=== PATIENT | female | born 1985 | race Caucasian/White ===

== ENCOUNTER 2023-05-06 14:55 | Inpatient (IN) | payer BC, SELFPAY ==
[2023-05-06] VITALS (10 sets, daily range): BP systolic 101–125; BP diastolic 64–90; BMI 30.7; BMI 30.5
--- NOTE | 2023-05-06 08:37 | ED.GENMED ---
History of Present Illness
General
Chief Complaint: Back Pain
Source: patient
Exam Limitations: none
Time Seen by Provider: 05/06/23 08:28
Travel History
Have you had any contact with someone who has COVID-19?: No
Do you have any symptoms of coronavirus? Fever > 100 degrees, chills, cough, shortness of breath, sore throat, loss of taste or smell, muscle aches, or headache?: No
History of Present Illness
History of Present Illness:
37-year-old female presents complaining of right flank pain with associated nausea but no vomiting. This has been intermittent or ongoing for several days but this was preceded by urinary symptoms including dysuria darker colored urine and
increased frequency over the past week or so. She is healthy otherwise. No surgical history other than x 3. No fever. No radiation of pain down the leg. Pain is not worse with eating. Pain is not pleuritic. No other that this time
Phy Exam
Physical Exam
Physical Exam:
General: Uncomfortable appearing female no acute respiratory distress
HEENT: Normocephalic atraumatic
Heart: Regular rate and rhythm no murmurs
Lungs: Clear to auscultation bilaterally no wheezing
Abdomen: Mild right-sided costovertebral angle tenderness not tender over the right lower quadrant negative Suggs sign
Skin is warm no rashes
Course
Orders/Labs/Results
Orders:
Orders
05/06/23 08:36
0.9% Sodium Chloride 1000 ml [Nss] 1,000 ml IV BOLUS
Ketorolac [Toradol] 15 mg IV NOW STA
05/06/23 08:37
CT Abd/pel Without Iv Or Oral Urgent
Comment:
Reason For Exam: right flank pain
05/06/23 08:39
Test Result ONCE
05/06/23 09:13
Complete Blood Count/With Diff Urgent
Comprehensive Metabolic Panel Urgent
HCG, Serum Qualitative Screen Urgent
05/06/23 12:10
Urinalysis Reflex To Culture Urgent
Date Specimen was Collected: 05/06/23
Time Specimen was Collected: 12:07
Urine Microscopic Reflex Cult Urgent
Urine Culture Urgent
NATTY Source: U
Specimen Description:
Date Specimen was Collected: 05/06/23
Time Specimen was Collected: 12:07
Abnormal Lab Results
05/06/23 05/06/23
09:13 12:10
MCV 80.8 L fL
(81.0-99.0)
MCH 26.7 L pg
(27.0-31.0)
Chloride 109 H mmol/L
(98-107)
Glucose 112 H mg/dl
(70-99)
Ur Occult Blood Reflex 4+ A
(Negative)
Urine Nitrite (Reflex) Positive A
(Negative)
Leukocyte Esterase Rfl 1+ A
(Negative)
Urine RBC 7-10 A /HPF
(0-2)
Urine Bacteria (Reflex) Many A
(Negative)
05/06/23 09:13
05/06/23 09:13
Vital Signs
Initial and Last Documented VS:
Initial Vital Signs
Pulse Resp BP Pulse Ox
71 16 122/80 98
05/06/23 08:23 05/06/23 08:23 05/06/23 08:23 05/06/23 08:23
Last Documented Vital Signs
Temp Pulse Resp BP Pulse Ox
98.6 F 71 16 116/80 99
05/06/23 12:24 05/06/23 08:23 05/06/23 08:23 05/06/23 11:00 05/06/23 13:00
MDM/Problems Addressed
Differential Diagnosis Includes:
Right flank pain with urinary symptoms. Consider UTI versus pyelonephritis versus kidney stone
Check labs. Urinalysis pending. Treat with Toradol CT pending
*Critical Care Note
Total Time (30-74mins, 75-104mins- exclusive of procedures): Not Applicable
Update Note
Update Note:
Patient has 6.5 mm stone in the proximal right ureter that is obstructive and causing hydronephrosis. Urine is nitrite positive with many bacteria but 3-5 white blood cells per high-powered field. Discussed findings with urology. Patient was
given option to go home with trial of passage and pain relief however patient uncomfortable thought of going home. Will keep in hospital pain control and potential intervention
ED Attending Note
-
Portions of this chart may have been created with voice recognition software.� Occasional wrong word or��sound alike� substitutions may have occurred due to the inherent limitations of voice recognition software.
Discharge Plan
Departure
Patient Disposition: Admit
Date of Disposition: 05/06/23
Time of Disposition: 13:48
Admit to: Med/Surg
Presentation/result/management discussed w/ accepting MD/DO: Hospitalist
Discharge Problem:
Calculus, ureteral
Prescriptions:
No Action
ljonxnoj-sed-Ck-FA 1 mg Tablet
1 tab PO DAILY
acetaminophen 325 mg Tablet
650 mg PO Q4HPRN PRN (Reason: mild pain) Qty: 0 0RF
ibuprofen 600 mg Tablet
600 mg PO Q6HPRN PRN (Reason: cramps) Qty: 0 0RF
Referrals:
Belén Bull DO [Family Provider] -
Interventions
Interventions:
*Risk Screen - Suicide Last Done: 05/06/23 09:01
*General Assessment Last Done: 05/06/23 09:01
*Neglect/Abuse Screening Last Done: 05/06/23 09:01
ED- Fall Risk Assessment Last Done: 05/06/23 09:01
*ED COVID-19 Vaccine History Last Done: 05/06/23 08:23
ED-Musculoskeletal Assessment Last Done: 05/06/23 09:01
[2023-05-06] MEDS: NSS 1000 IV ×2 (09:13→14:54)
[2023-05-06] MEDS: TORADOL 15 MG IV (09:13)
[2023-05-06 09:24] LABS: % Basophils 0.4 % (0-2); % Eosinophils 2.2 % (0-6); % Immature Granulocytes 0.2 % (0-0.5); % Lymphocytes 30.7 % (20.5-51.1); % Monocytes 6.2 % (1.7-9.3); % Neutrophils 60.3 % (42.2-75.2); Absolute Eosinophils 0.2 10^3/uL (0-0.7); Absolute Lymphocytes 2.5 10^3/uL (1.2-3.4); Absolute Monocytes 0.5 10^3/uL (0.1-0.6); Hematocrit 39.1 % (37.0-47.0); Hemoglobin 12.9 g/dL (12.0-16.0); Mean Corpuscular Hgb 26.7 pg (27.0-31.0); Mean Corpuscular Volume 80.8 fL (81.0-99.0); Mean Platelet Volume 9.8 fL (7.4-10.4); Nucleated Red Blood Cells % 0 %; Platelet Count 281 10^3/uL (130-400); Red Blood Cell Count 4.84 10^6/uL (4.20-5.40); Red Cell Dist. Width 13.6 % (11.5-14.5); White Blood Cell Count 8.3 10^3/uL (4.8-10.8)
[2023-05-06 09:38] LABS: HCG, Serum Qualitative Screen Negative
[2023-05-06 09:41] LABS: ALT (SGPT) 24 U/L (0-35); AST (SGOT) 21 U/L (14-36); Albumin 4.4 g/dl (3.5-5.0); Alkaline Phosphatase 71 U/L (38-126); Blood Urea Nitrogen 15 mg/dl (7-17); Calcium 9.3 mg/dl (8.4-10.2); Carbon Dioxide 23 mmol/L (22-30); Chloride 109 mmol/L (98-107); Estimated Creatinine Clearance > 125 ml/min; Glucose 112 mg/dl (70-99); Potassium 4.7 mmol/L (3.5-5.1); Sodium 138 mmol/L (135-145); Total Bilirubin 0.4 mg/dl (0.2-1.3); eGFR > 60.00
[2023-05-06 12:35] LABS: Urine Albumin Trace (Neg - Trace); Urine Bilirubin Negative (Negative); Urine Character Slightly Cloudy (Clear); Urine Color Yellow; Urine Glucose Negative (Negative); Urine Ketone Negative (Negative); Urine Leukocyte 1+ (Negative); Urine Nitrite Positive (Negative); Urine Occult Blood 4+ (Negative); Urine Urobilinogen Negative (Neg - 1+); Urine pH 6.5 (5.0-9.0)
[2023-05-06 12:57] LABS: Urine Bacteria Many (Negative)
--- NOTE | 2023-05-06 13:56 | HPS.HSE ---
Addendum entered and electronically signed by Jay Cali MD 05/06/23 18:08:
I saw and examined the patient.
The SITE OPERATIONS MANAGER's note was reviewed and I agree with the note.
37-year-old female with no significant past medical history came in for new onset of right-sided flank pain. Denies associated fever/hematuria. I have some nausea and vomiting. In ER patient had a CT abdomen pelvis which showed 6.5 mm proximal
right ureteral obstructing stone with moderate hydronephrosis.
HEENT: No pallor, cyanosis, or jaundice. Throat clear.
NECK: Supple. No JVD.
RESPIRATORY: Lungs clear to auscultation.
CVS: S1, S2 normal. RRR. No murmur, rub or gallop.
ABDOMEN: Soft, right flank tenderness.
EXTREMITIES: No peripheral cyanosis or edema.
SHOCK ABSORBER INSTALLER: AOx3. No focal deficits.
Right ureteral obstructing stone
Right hydronephrosis
- CT a/p showing 6.5mm right proximal ureteral stone, with moderate hydronephrosis
-UA showing bacteriuria, no pyuria. With procedure required will treat asymptomatic bacteriuria with Rocephin
-Pain control/n.p.o. past midnight for possible OR tomorrow if does not pass stone
-Urology following
Liver mass
-Incidental finding on CT abdomen pelvis.
-Patient had previous MRI and known to have liver mass, being followed up by primary physicians outpatient.
Original Note:
Family Physician
-
Family Physician: Kelby Bull DO
Chief Complaint
-
Right flank pain
History of Present Illness
37-year-old female complaining of right flank pain on and off for 6 weeks associated with dysuria. She reports last night she had sudden onset of right-sided flank pain then this a.m. with persistent pain and vomiting. She reports she initially
went to urgent care but then came to the ER for evaluation. She was noted to have a 6.5 mm right ureteral proximal stone obstruction with moderate hydro on CT. She denies current dysuria, fever, chills, chest pain, palpitations, shortness of
breath, cough, diarrhea. PMH ADD, past surgical history section x 3
Medical History
Past Medical History
Past Medical History: Reports Other (ADD)
Past Surgical History: Reports (x3)
Social History
Tobacco: Non-smoker
Alcohol: None
Drug: None
Personal:
Living: With Family
Family History
Family History: Other (father bladder )
Allergies / Home Medications
Allergies reflects when Allergies were last updated in [facility].
Home Medications with original date entered in [facility]
Allergy/Medication List:
Allergies
Allergy/AdvReac Type Severity Reaction Status Date / Time
No Known Allergies Allergy Verified 05/06/23 08:27
Home Medications
acetaminophen 500 mg tablet (Tylenol Extra Strength) 1,000 mg PO ONCE PRN mild pain 05/06/23
dextroamphetamine-amphetamine ER 30 mg 24hr capsule,extend release 30 mg PO DAILY 05/06/23
Review of Systems
-
History Source: Patient
A 12 point ROS was completed and negative except as noted: Yes
Constitutional: Denies Fever or Chills
EENT: Denies Sore Throat or Runny Nose
Respiratory: Denies Cough or Trouble Breathing
Cardiac: Denies Chest Pain, Diaphoresis, Palpitations or Syncope
Abdomen/GI: Reports Abdominal Pain (Right-sided), Nausea and Vomiting; Denies Diarrhea, Constipated, Bloody Stools or Black Stools
: Reports Flank Pain (Right); Denies Dysuria, Frequency or Difficulty Voiding
Musculoskeletal: Denies Joint Pain or Edema
Skin: Denies Itching
Neurological: Denies Dizzy, Headache or Weakness
Endocrine: Reports No Symptoms
Hematologic/Lymphatic: Reports No Symptoms
Psych: Reports Calm
Physical Exam
Vital Signs
Vital Signs
Temp Pulse Resp BP Pulse Ox
98.6 F 71 16 116/80 99
05/06/23 12:24 05/06/23 08:23 05/06/23 08:23 05/06/23 11:00 05/06/23 13:00
Physical Exam
General: Comfortable and Conversant; No Fever or Chills
HEENT: NormoCephalic, Anicteric, Moist mucous membranes, PERRLA, [place] Conjunctivae and No Ptosis
Respiratory: Clear; No Wheezes, Rales or Rhonchi
Cardiac: S1/S2 and Regular Rhythm; No Murmur, Rub, Gallop or Peripheral Edema
GI: Soft, Non Distended, Normal Bowel Sounds, Tender (Slight right sided and right flank) and No Hepatosplenomegaly
Genito-urinary: Costovertebral angle tend (Right flank)
Musculoskeletal: No Clubbing, No Cyanosis and No Edema
Skin: Warm and Dry; No Rash
Neuro: AO x 3, No Motor Deficits, Nonfocal/grossly intact and No Sensory Deficits; No Slurred Speech, Facial Droop or Tremors
Psych: Calm
Laboratory Results
-
05/06/23 09:13
05/06/23 09:13
Laboratory Results
Total Bilirubin 0.4 mg/dl (0.2-1.3) 05/06/23 09:13
AST 21 U/L (14-36) 05/06/23 09:13
ALT 24 U/L (0-35) 05/06/23 09:13
Alkaline Phosphatase 71 U/L (38-126) 05/06/23 09:13
Impression/Plan
-
Impression/plan:
Admit to MedSurg
#Obstructing right ureteral calculus with moderate hydro/UTI
-n.p.o.
-Consult urology
-IV NSS
-IV Rocephin
-IV Toradol, IV Phenergan patient reports does not respond to Zofran
-Strain urine
-Follow CBC, BMP
CT abdomen pelvis:
1. 6.5 mm obstructing calculus in the proximal right ureter associated with moderate right hydro
2 . 1 cm density partially exophytic mass in the lateral portion of the mid kidney may represent cyst or neoplasm consider MRI
3. 5 cm low-density mass in the right lobe of the liver could be evaluated with MRI
#Incidental liver mass on CT
-recommend outpt follow up
DVT prophylaxis
SCDs
Full code
[2023-05-06] MEDS: STERILE WATER FOR INJECTION 10 ML IV (14:53)
[2023-05-06] MEDS: ROCEPHIN 1000 MG IV (14:54)
--- NOTE | 2023-05-06 17:26 | W.PN.URO.CBU ---
Today's Communication / Plan
-
will observe trial of pasage reasses in am if vfevr chills then to op roomsooner prob stent am tomorrow or attem,pt to laser remove
Assessment / Plan
-
6 weeks colic wora e tiday with proximal rt ureteral stone rt hydro 6.5 mm also incidental left 1 cm mass too small to ca=haracterize
Diagnosis
-
Date of Service: May 06, 2023
-
Patient Diagnosis:rt ureteral stone colic incidental left 1cm mass
Post Op Day:
Subjective
-
colic 6 weeks pain today with no fevr chills
Objective
-
Vital Signs
Temp Pulse Resp BP Pulse Ox
98.6 F 71 16 113/80 96
05/06/23 12:24 05/06/23 08:23 05/06/23 08:23 05/06/23 16:00 05/06/23 16:15
Laboratory Results
05/06/23 09:13
05/06/23 09:13
Review of Systems
-
Abdomen/GI: Abdominal Pain (rt flank)
: Flank Pain
Physical Exam
-
General - well developed, well nourished, no acute distress
Chest - clear bilaterally
Abdomen - soft, non-tender, positive bowel sounds, no CVAT, no incisional pain or distention
Genitalia - normal
Rectal - normal
Skin - warm & dry with no rash
Neuro - AOx3, no motor deficits
Extremities - no clubbing, no cyanosis, no edema
Incision - clean, dry
Dressing - clean, dry, intact
Counseling
-
may eat call urology neon tube pumper if fevr 0ver 101. 5 or rigors chills
Care Review
Data Reviewed
Discussed with: Hospitalist
CT Scan: Image Pers Reviewed
--- NOTE | 2023-05-06 23:29 | PTCARENOTE ---
Patient received in room upon change of shift. AA0x3. No c/o pain or discomfort. Oriented to room and unit. Call crews within reach.
[2023-05-07] VITALS (9 sets, daily range): BP systolic 108–134; BP diastolic 54–85
[2023-05-07] MEDS: NSS 1000 IV ×3 (00:30→21:38)
[2023-05-07] MEDS: TORADOL 30 MG IV ×3 (04:35→21:42)
[2023-05-07 07:31] LABS: % Basophils 0.2 % (0-2); % Eosinophils 2.5 % (0-6); % Immature Granulocytes 0.2 % (0-0.5); % Lymphocytes 38.1 % (20.5-51.1); % Monocytes 5.8 % (1.7-9.3); % Neutrophils 53.2 % (42.2-75.2); Absolute Eosinophils 0.2 10^3/uL (0-0.7); Absolute Lymphocytes 3.1 10^3/uL (1.2-3.4); Absolute Monocytes 0.5 10^3/uL (0.1-0.6); Absolute Neutrophils 4.3 10^3/uL (1.4-6.5); Hematocrit 34.8 % (37.0-47.0); Hemoglobin 11.5 g/dL (12.0-16.0); Mean Corpuscular Hgb 26.5 pg (27.0-31.0); Mean Corpuscular Volume 80.2 fL (81.0-99.0); Mean Platelet Volume 10.3 fL (7.4-10.4); Nucleated Red Blood Cells % 0 %; Platelet Count 241 10^3/uL (130-400); Red Blood Cell Count 4.34 10^6/uL (4.20-5.40); Red Cell Dist. Width 13.6 % (11.5-14.5); White Blood Cell Count 8.1 10^3/uL (4.8-10.8)
[2023-05-07 07:53] LABS: ALT (SGPT) 18 U/L (0-35); AST (SGOT) 17 U/L (14-36); Albumin 3.4 g/dl (3.5-5.0); Alkaline Phosphatase 71 U/L (38-126); Blood Urea Nitrogen 13 mg/dl (7-17); Calcium 8.8 mg/dl (8.4-10.2); Carbon Dioxide 23 mmol/L (22-30); Chloride 110 mmol/L (98-107); Estimated Creatinine Clearance 111 ml/min; Glucose 91 mg/dl (70-99); Potassium 4.1 mmol/L (3.5-5.1); Sodium 136 mmol/L (135-145); Total Bilirubin 0.3 mg/dl (0.2-1.3); Total Protein 5.8 g/dl (6.3-8.2); eGFR > 60.00
--- NOTE | 2023-05-07 09:20 | PTOTSP ---
Patient admitted due to ureteral stone, otherwise no past medical history nor mobility deficits. RN confirms the patient is independent. PT evaluation is not warranted on this patient, will sign off.
--- NOTE | 2023-05-07 10:13 | W.PN.URO.CBU ---
Today's Communication / Plan
-
to op room for stenting sy-tone manipulation possible lasr extraction
Assessment / Plan
-
6 weeks colic with proximal rt ureteral stone rt hydro 6.5 mm also incidental left 1 cm mass too small to characterize
Diagnosis
-
Date of Service: May 07, 2023
-
Patient Diagnosis:
Post Op Day:
Patient Diagnosis:rt ureteral stone colic incidental left 1cm mass
Post Op Day:
Subjective
-
still pain
Objective
-
Vital Signs
Temp Pulse Resp BP Pulse Ox
97.9 F 65 12 123/83 99
05/07/23 07:21 05/07/23 07:21 05/07/23 07:21 05/07/23 07:21 05/07/23 07:21
Intake and Output
05/06/23 05/07/23 05/08/23
06:59 06:59 06:59
Intake Total 1600 / 1600
Balance 1600 / 1600
Intake:
Oral fluids 600 / 600
IV fluids (Total) 1000 / 1000
Other:
Number of approximated MODERATE 3
amounts of urine
Laboratory Results
05/07/23 06:56
05/07/23 06:56
Review of Systems
-
: Flank Pain
Physical Exam
-
General - well developed, well nourished, no acute distress
Chest - clear bilaterally
Abdomen - soft, non-tender, positive bowel sounds, no CVAT, no incisional pain or distention
Genitalia - normal
Rectal - normal
Skin - warm & dry with no rash
Neuro - AOx3, no motor deficits
Extremities - no clubbing, no cyanosis, no edema
Incision - clean, dry
Dressing - clean, dry, intact
Counseling
-
to manzanares spoke with yahaira vanegas and filled in on care
Care Review
Data Reviewed
Discussed with: Nursing and Family
--- NOTE | 2023-05-07 13:29 | W.IMMPOSTOP ---
Surgical Immed Post Op Note
-
Primary Surgeon:
tay
Assisting Surgeon:
Pre-op Diagnosis:
right ureteral stone/uti
Post-op Diagnosis:
same
Procedure Performed:
cysto/right ureteroscopy/laser litho and stent
Anesthesia Type:
gen
Specimen / Cultures:
stone
Estimated Blood Loss:
2cc
Complications:
none
Operative Findings:
no evid of active infx
stone treated/stent placed
her ucx post op has returned + for ecoli- so will need to keep in house to observe for infx/bacteremia
on rocephin- gent dose given
updated by phone
[2023-05-07] MEDS: GENTAMICIN 54.375 MG IV (13:52)
--- NOTE | 2023-05-07 13:56 | W.PN.HOSP.TC ---
Today's Communication/Plan
-
continue abx
for uro procedure today
Assessment / Plan
Assessment / Plan
Right ureteral obstructing stone
Right hydronephrosis
- CT a/p showing 6.5mm right proximal ureteral stone, with moderate hydronephrosis
-UA showing bacteriuria, no pyuria.� With procedure required will treat asymptomatic bacteriuria with Rocephin
-Pain control/ivf
-S/p cystooscopic stone retrieval and stent placement
Liver mass
-Incidental finding on CT abdomen pelvis.
-Patient had previous MRI and known to have liver mass, being followed up by primary physicians outpatient.
DVT ppx - scd
Full code
Anticipated Discharge: Within 24 hours
Subjective/Interval History
-
Date of Service: May 07, 2023
Denies any nausea or vomiting overnight
comfortable in bed
afebrile , BP controlled
Objective Data
-
Labs:
Laboratory Results
05/07/23
06:56
WBC 8.1
Hgb 11.5 L
Hct 34.8 L
Plt Count 241
Sodium 136
Potassium 4.1
Chloride 110 H
Carbon Dioxide 23
BUN 13
Creatinine 0.8
Glucose 91
Calcium 8.8
Total Bilirubin 0.3
AST 17
ALT 18
Alkaline Phosphatase 71
Vital Signs:
Vital Signs
Temp Pulse Resp BP Pulse Ox
99.5 F 52 14 108/70 100
05/07/23 13:30 05/07/23 13:45 05/07/23 13:45 05/07/23 13:45 05/07/23 13:45
I&O
05/06/23 05/07/23 05/08/23
06:59 06:59 06:59
Intake Total 1600 / 1600
Balance 1599
Review of Systems
-
Respiratory: Reports No Symptoms
Cardiac: Reports No Symptoms
Abdomen/GI: Reports No Symptoms
Physical Exam
-
General: No Apparent Distress and Comfortable
HEENT: Negative Oxygen
Respiratory: Clear to Auscultation
Cardiac: Regular Rhythm and S1/S2; Negative Murmur or Rub
GI: Soft, Nontender, Nondistended and Normal Bowel Sounds
Musculoskeletal: No Edema
Neuro: Awake, Alert, Oriented, No Motor Deficits and Nonfocal/Grossly Intact
Psych: Calm
--- NOTE | 2023-05-07 15:07 | CM ---
Chart reviewed. Spoke with pt and at bedside
Pt lives with her and children in a 2 story home
Independent, drives
Denies DME in home
Denies past HH/SNF
Will have ride at d/c
PCP - Dr Mayra Franklin'
Pharm - [facility]
CM will follow for d/c needs
Anticipate home - no needs
[2023-05-07] MEDS: Pyridium 100 MG PO (15:53)
[2023-05-07] MEDS: STERILE WATER FOR INJECTION 10 ML IV (15:53)
[2023-05-07] MEDS: ROCEPHIN 1000 MG IV (15:53)
[2023-05-08] MEDS: Pyridium 100 MG PO ×2 (00:38→07:38)
[2023-05-08 04:53] VITALS: BP 116/62
[2023-05-08] MEDS: NSS 1000 IV (06:01)
[2023-05-08] MEDS: SENOKOT 8.59999999999999964 MG PO (07:38)
[2023-05-08] MEDS: TORADOL 30 MG IV (07:39)
--- NOTE | 2023-05-08 07:57 | W.PN.URO.CBU ---
Today's Communication / Plan
-
await uc results and discharge when back
Assessment / Plan
-
stone s/p ureteroscopy and stent
ecoli UTI
small renal mass
pt looks great
check labs
plan to discharge on 7 days of antibx when ucx results are back- hopefully later today
pt due for rocephin at 4pm- will have her get this dose prior to going home
will f/u with dr beauchamp for stent remvoal and monitoring of renal findings
Diagnosis
-
Date of Service: May 08, 2023
-
Patient Diagnosis
rt ureteral stone
ecoli UTI
Post Op Day:
3/5 right ureteroscopy/laser litho and stent
Subjective
-
pt looks and feels great
no fever/HD stable
Objective
-
Vital Signs
Temp Pulse Resp BP Pulse Ox
98.4 F 76 18 116/62 97
05/08/23 04:53 05/08/23 04:53 05/08/23 04:53 05/08/23 04:53 05/08/23 04:53
Intake and Output
05/07/23 05/08/23 05/09/23
06:59 06:59 06:59
Intake Total 1600 / 1600 2260 / 2260
Output Total 300 / 300
Balance 1600 / 1600 1960 / 1960
Intake:
Oral fluids 600 / 600 960 / 960
IV fluids (Total) 1000 / 1000 1300 / 1300
Gentamycin 50 / 50
Normosol 50 / 50
Output:
Urine, Voided 300 / 300
Other:
Number of approximated MODERATE 3 2
amounts of urine
Review of Systems
-
Constitutional: Fatigue
Respiratory: No Symptoms
Cardiac: No Symptoms
Abdomen/GI: No Symptoms
: Frequency
Physical Exam
-
General - no acute distress
[2023-05-08 08:16] LABS: % Basophils 0.1 % (0-2); % Immature Granulocytes 0.6 % (0-0.5); % Lymphocytes 11.2 % (20.5-51.1); % Monocytes 4.6 % (1.7-9.3); % Neutrophils 83.5 % (42.2-75.2); Absolute Immature Granulocytes 0.1 10^3/uL (0-0.05); Absolute Lymphocytes 2.1 10^3/uL (1.2-3.4); Absolute Monocytes 0.9 10^3/uL (0.1-0.6); Absolute Neutrophils 15.6 10^3/uL (1.4-6.5); Hematocrit 37.5 % (37.0-47.0); Hemoglobin 12.4 g/dL (12.0-16.0); Mean Corp Hgb Conc. 33.1 g/dL (33.0-37.0); Mean Corpuscular Hgb 26.6 pg (27.0-31.0); Mean Corpuscular Volume 80.3 fL (81.0-99.0); Mean Platelet Volume 10.6 fL (7.4-10.4); Nucleated Red Blood Cells % 0 %; Platelet Count 283 10^3/uL (130-400); Red Blood Cell Count 4.67 10^6/uL (4.20-5.40); Red Cell Dist. Width 13.2 % (11.5-14.5); White Blood Cell Count 18.6 10^3/uL (4.8-10.8)
[2023-05-08 08:35] VITALS: BP 134/77
[2023-05-08 08:58] LABS: ALT (SGPT) 22 U/L (0-35); AST (SGOT) 19 U/L (14-36); Albumin 3.5 g/dl (3.5-5.0); Alkaline Phosphatase 66 U/L (38-126); Blood Urea Nitrogen 13 mg/dl (7-17); Calcium 9.1 mg/dl (8.4-10.2); Carbon Dioxide 19 mmol/L (22-30); Chloride 110 mmol/L (98-107); Estimated Creatinine Clearance > 125 ml/min; Glucose 147 mg/dl (70-99); Potassium 4.4 mmol/L (3.5-5.1); Sodium 139 mmol/L (135-145); Total Bilirubin 0.3 mg/dl (0.2-1.3); eGFR > 60.00
--- NOTE | 2023-05-08 10:17 | W.PN.HOSP.TC ---
Today's Communication/Plan
-
d/c home
Assessment / Plan
Assessment / Plan
Right ureteral obstructing stone
Right hydronephrosis
- CT a/p showing 6.5mm right proximal ureteral stone, with moderate hydronephrosis
-UA showing bacteriuria, no pyuria.� With procedure required will treat asymptomatic bacteriuria with Rocephin
-Pain control/ivf
-S/p cystoscopic stone retrieval and stent placement
Ecoli UTI
-urine cs reviewed, paritally drug resistant
-wan not susceptible to rocephin
-changed to Bactrim 5 days course
-f/u BMP script provided
Liver mass
-Incidental finding on CT abdomen pelvis.
-Patient had previous MRI and known to have liver mass, being followed up by primary physicians outpatient.
-GI follow up contact provided.
DVT ppx - scd
Full code
More than 30 minutes spent in discharge including
Final examination of the patient
Summarizing hospital stay
Instructions for continuing care to all relevant caregivers
Preparation of discharge records, prescriptions, and referral forms
Total time spent (in minutes): 38 mins
Anticipated Discharge: Today
Subjective/Interval History
-
Date of Service: May 08, 2023
no complains overnight
afebrile
Objective Data
-
Labs:
Laboratory Results
05/08/23
07:35
WBC 18.6 H
Hgb 12.4
Hct 37.5
Plt Count 283
Sodium 139
Potassium 4.4
Chloride 110 H
Carbon Dioxide 19 L
BUN 13
Creatinine 0.6
Glucose 147 H
Calcium 9.1
Total Bilirubin 0.3
AST 19
ALT 22
Alkaline Phosphatase 66
Vital Signs:
Vital Signs
Temp Pulse Resp BP Pulse Ox
99.1 F 75 20 134/77 99
05/08/23 08:35 05/08/23 08:35 05/08/23 08:35 05/08/23 08:35 05/08/23 08:35
I&O
05/07/23 05/08/23 05/09/23
06:59 06:59 06:59
Intake Total 1600 / 1600 2259 / 2259
Output Total 300 / 300
Balance 1600 / 1600 1959 / 1959
Review of Systems
-
Respiratory: Reports No Symptoms
Cardiac: Reports No Symptoms
Abdomen/GI: Reports No Symptoms
Physical Exam
-
General: No Apparent Distress and Comfortable
HEENT: Negative Oxygen
Respiratory: Clear to Auscultation
Cardiac: Regular Rhythm and S1/S2; Negative Murmur or Rub
Musculoskeletal: No Edema
Neuro: Awake, Alert, Oriented, No Motor Deficits and Nonfocal/Grossly Intact
Psych: Calm
--- NOTE | 2023-05-08 10:20 | CM ---
Plan: Discharge to home without services
Per patient, will provide transport home
[2023-05-08 11:11] VITALS: BP 135/83
[2023-05-08] MEDS: BACTRIM DS 800 MG/160 MG 1 TABLET PO (11:20)
--- NOTE | 2023-05-09 07:36 | W.DCSUMMARY ---
Discharge Summary
Discharge Data
Date of Admission: 05/06/23
Date of Discharge: 05/08/23
-
Pending Results: No
Hospital Course
Discharging Physician : Dr Jay Cali
Disposition : To home
Primary care physician : Dr Jazmine Bull
Principal Discharge diagnosis :
Right ureteral obstructing stone and hydronephrosis
Partially of drug-resistant stricture Escherichia coli urinary tract infection
Liver mass
Chronic Discharge diagnosis :
None
Hospital Course :
Patient is a 37-year-old female with no significant past medical history came to the ER with new onset of right-sided flank pain. Patient denies of having any associated fever/hematuria. Patient had some episode of nausea and vomiting. In ER
patient is CT abdomen pelvis which showed a 6.5 mm proximal ureteral obstructing stone with moderate hydronephrosis. UA was also showing some pyuria and bacteriuria. Patient was started on Rocephin and urology services were consulted. Patient was
managed conservatively initially and maintained on pain medication/IV fluid. Patient unable to pass stone
Patient was taken to the OR for cystoscopy with stone removal and stent placement. Postprocedure course remained uncomplicated. Patient urine culture reported partial drug-resistant E. coli. Based on susceptibility patient was discharged on
Bactrim course. Patient to follow up with urology in office.
Patient incidentally was noted to having a 5 cm low-density mass in the right lobe of the liver as well. Patient provided gastroenterology office number to follow-up with for further evaluation.
Important imaging findings :
None
Procedure findings :
None
Discharge Plan
-
Patient Disposition: Home (Routine Discharge)
Discharge Diagnosis/Procedures: Right ureteral stone and Ecoli UTI
you underwent a right ureteroscopy/stone removal and stent placement
Condition: Fair
Diet: Regular
Activity: No restrictions
Driving Restrictions: As prior to admission
Bathing Restrictions: OK to Shower
Blood Work: BMP in 1 week
Wound Care: expect blood inurine, urinary urgency and frequency and some pain with urination
Referrals:
Devendra Rhoades MD [Active] -
(call dr rhoades [phone] to schedule next phase of treatment Also you have a shadow on left kidney that is too small to tell what it is.
Will need mri of kidneys at some point when healed from stone call dr rhoades to schedule You have a plastic stent in your bladder.... Expect urinary freqiecy and burningand blood in uri and flank pain upon urination. Call if problems and/
or if fever over 101.5 or shaking chills)
Belén Bull DO [Family Provider] -
Prescriptions:
New
tramadol 50 mg tablet
50 mg PO Q8H PRN (Reason: Pain) Qty: 20 0RF
phenazopyridine [Pyridium] 100 mg tablet
100 mg PO BID Qty: 20 0RF
sulfamethoxazole-trimethoprim [Bactrim DS] 800-160 mg tablet
1 tab PO BID Qty: 10 0RF
Continued
acetaminophen [Tylenol Extra Strength] 500 mg Tablet
1,000 mg PO ONCE PRN (Reason: mild pain)
dextroamphetamine-amphetamine 30 mg Capsule,Extended Release 24hr
30 mg PO DAILY
Patient Comments:
05/06/2023, per pt., sometimes she skips taking this med. on the weekends. Pt. filled this med. on 04/17/2023 for 30 capsules according to PDMP.
Discharge Orders:
Discharge Patient (As Directed); Ordered 05/08/23
Ordered By: Jay Cali
Discharge Date and Time
Discharge Date/Time: 05/08/23 13:31
[2023-05-13 13:23] LABS: Stone Analysis Mass 56 mg
== END 2023-05-08 13:31 | disposition home or self-care (01) | DRG 661 ==
LOC: 4 WEST ACU 14:55
PROVIDERS: Clinical Nurse Specialist Family Health; Physician Assistant; Specialist; ADMITTING PHYSICIAN Hospitalist; CONSULT PHYSICIAN Specialist; EMERGENCY PHYSICIAN Emergency Medicine; FAMILY PHYSICIAN Student in an Organized Health Care Education/Training Program
PROC: 0TC68ZZ Extirpation of Matter from Right Ureter, Via Natural or Artificial Opening Endoscopic (ICD-10-PCS; 2023-05-07)
PROC: 0T768DZ Dilation of Right Ureter with Intraluminal Device, Via Natural or Artificial Opening Endoscopic (ICD-10-PCS; 2023-05-07)
DX: N13.2 Hydronephrosis with renal and ureteral calculous obstruction (principal); R16.0 Hepatomegaly, not elsewhere classified
CPT/HCPCS: 74176; 74420; 76000; 80053; 81003; 81015; 82365; 84703; 85025; 87077; 87086; 87186; 96361; 96374; 99285; C1758; C1894; C2617

== ENCOUNTER → 2023-06-20 19:42 | Outpatient (REF) | payer BC, SELFPAY | LOC: MRI 3T 19:42 | PROVIDERS: ATTENDING PHYSICIAN Specialist; FAMILY PHYSICIAN Student in an Organized Health Care Education/Training Program | DX: D41.02 Neoplasm of uncertain behavior of left kidney (principal) | CPT/HCPCS: 74183; A9575 ==

== ENCOUNTER → 2024-03-06 09:47 | Outpatient (REF) | payer BC, SELFPAY | LOC: RAD 09:47 | PROVIDERS: ATTENDING PHYSICIAN Nurse Practitioner Family; FAMILY PHYSICIAN Family Medicine | DX: N39.9 Disorder of urinary system, unspecified (principal) | CPT/HCPCS: 76830; 76856 ==

== ENCOUNTER → 2024-03-13 11:12 | Outpatient (REF) | payer BC, SELFPAY | LOC: HWWDC 11:12 | PROVIDERS: ATTENDING PHYSICIAN Nurse Practitioner Family; FAMILY PHYSICIAN Family Medicine | DX: Z12.31 Encounter for screening mammogram for malignant neoplasm of breast (principal) | CPT/HCPCS: 77063; 77067 ==

== ENCOUNTER → 2024-04-29 13:15 | Outpatient (REF) | payer BC, SELFPAY | LOC: HWRAD 13:15 | PROVIDERS: ATTENDING PHYSICIAN Nurse Practitioner Family; FAMILY PHYSICIAN Family Medicine | DX: N83.292 Other ovarian cyst, left side (principal) | CPT/HCPCS: 76830; 76856 ==